=== PATIENT | female | born 1970 | race Caucasian/White ===

== ENCOUNTER → 2018-12-31 09:19 | Outpatient (CLI) | payer BC ==
--- NOTE | 2019-01-01 11:19 | ST ---
PATIENT:NESS CORONADO MEDICAL RECORD: [id number] SEX: F LOCATION:[facility] ORDER #: ADMISSION DATE: 12/31/18 AGE OF PATIENT: 48 REFERRING PHYSICIAN: INTERPRETING PHYSICIAN: NAREN DENT MD DATE OF SERVICE: 12/31/2018 PROCEDURE: Nuclear stress test. INDICATIONS: Angina, shortness of breath, hypertension, hyperlipidemia. She was exercised on standard Bobby protocol for 8 minutes 30 seconds achieving greater than 85% max target heart rate response with 31 mCi of sestamibi injected at peak stress, 11 mCi were used previously for rest images. FINDINGS: Gated SPECT reveals preserved ejection fraction at 66% with good wall motion and thickening and brightening throughout all segments. SPECT imaging Cardiolite was used as myocardial fusion agent. There is homogeneous uptake throughout all segments at rest and stress with no evidence of inducible ischemia or previous infarction. OVERALL IMPRESSION: 1. This is a normal nuclear stress test with no evidence of inducible ischemia or previous infarction. 2. Gated SPECT reveals a preserved ejection fraction at 66%. In this patient with ongoing symptomatology, the current scan does not suggest the presence of hemodynamically significant coronary artery disease. Evaluate noncardiac etiology of chest pain. TRANSINT:[id number] Voice Confirmation ID: [id number] DOCUMENT ID: [id number] NAREN DENT MD at 1119 CC: [id number] DICTATION DATE: 12/31/18 1610 ENGINE ROOM OPERATOR: 01/01/19 0124 DEP CLI 12/31/18 [facility] [address] [place] [address]
== END | disposition home or self-care (01) ==
LOC: D.HCCARDIO 09:19
DX: I20.1 Angina pectoris with documented spasm (principal)

== ENCOUNTER 2019-10-18 07:04 | Day surgery (SDC) | payer BC ==
[~2019-10-18] VITALS: Ht 154.9 cm; Wt 77.1 kg
[~2019-10-18 07:04] MED LIST: CLARITIN 10 MG10 MG PO; ESTRACE2 MG PO; EZFE 200200 MG PO; HCTZ25 MG PO; METOPROLOL TART50 MG PO; PROZAC20 MG PO; THEREMS-M1 TAB PO; ZOCOR10 MG PO
[2019-10-18 07:27] LABS: HEMATOCRIT 45.7 % (36.0-48.0); MCH 30.4 pg (26.0-34.0); MCV 86.9 fL (80.0-100.0); MEAN PLATELET VOLUME 10.4 fL (7.4-10.4); RBC 5.26 10x6/uL (4.00-5.40); RDW 13.6 % (11.5-14.5); WBC 6.8 10x3/uL (4.8-10.8)
[2019-10-18 07:34] LABS: CALC OSMOLALITY 283 mosm/kg (275-300); CALCIUM 9.1 mg/dL (8.5-10.1); CARBON DIOXIDE 33.5 mmol/L (21.0-32.0); CHLORIDE - SERUM 103 mmol/L (98-107); CREATININE - SERUM 0.8 mg/dL (0.6-1.3); GLUCOSE 109 mg/dL (74-106); POTASSIUM - SERUM 3.1 mmol/L (3.5-5.1); SODIUM 142 mmol/L (136-145); UREA NITROGEN 13 mg/dL (7-18); eGFR NON AFRICAN AMERICAN 81 mL/min (90-120)
[2019-10-18 08:41] VITALS: BP 133/88; Ht 154.9 cm; Wt 77.1 kg
[2019-10-18] MEDS ORDERED: HYDROCODON-ACE1 EAC7 PO (11:11)
[2019-10-18] MEDS ORDERED: DURICEF500 MG PO (11:12)
--- NOTE | 2019-10-18 13:50 | NUR ---
1335 ALL DC INSTRUCTIONS GIVEN. VOICES UNDERSTANDING. IV REMOVED WITH [facility]ATH[facility]ON INTACT. DRESSED AT BEDSIDE. TAKEN OUT VIA W/C AND ASSISTED TO CAR WITH FAMILY. ADVISED TO CALL OR COME BACK IF ANY PROBLEMS.
--- NOTE | 2019-10-19 07:18 | OP ---
PATIENT NAME: NESS CORONADO MEDICAL RECORD: [id number] :74 LOCATION:[facility] ADMISSION DATE: SURGEON: FISH GOODWIN DO DATE OF OPERATION: 10/18/2019 PROCEDURE PERFORMED: Left carpal tunnel injections and right endoscopic carpal tunnel release. PREOPERATIVE DIAGNOSIS: Bilateral carpal tunnel syndrome. POSTOPERATIVE DIAGNOSIS: Bilateral carpal tunnel syndrome. INDICATIONS: Ms. Coronado is a 49-year-old female who had a nerve conduction study, which showed bilateral carpal tunnel, this one on the right done first and wanted some relief with the left one. I informed her we could inject the left one when she was under to do the right one and she was okay with that. I could not promise any lasting relief with it. She was okay with that and just wants some relief. She was informed of the other risks including infection, bleeding, damage to the median nerve, need for further surgery, continued pain and continued numbness. I told her that I could hopefully get the pain to go away with release, but I could not guarantee the nerve would regenerate to get that feeling back. She was okay with that and signed a consent. SURGEON: Fish Goodwin DO DESCRIPTION OF PROCEDURE: The patient was taken to the operative suite, laid in the supine position, given a gram of Ancef and sedated an LMA was placed. Time-out was performed. Everyone was in agreeance with the correct side, site, patient and procedure. The left carpal tunnel was then injected just ulnar to the palmaris longus tendon. A 25-gauge needle was injected in the carpal tunnel and 6 mg of betamethasone and 1 mL of normal lidocaine 1% plain was injected into the left carpal tunnel, covered with a Band-Aid, prior to the injection it was cleaned with an alcohol pad. The right was then addressed. The right upper extremity was prepped and draped in sterile fashion. Timeout had been performed. The right upper extremity was exsanguinated with an Esmarch and tourniquet was inflated at 250 and it was up for 9 minutes. Incision was centered over the palmaris longus tendon. Careful dissection was then made with Ragnells, bluntly down to the carpal tunnel itself and forearm fascia was removed over the median nerve. It was then transected on top of the median nerve, visually with loupes with a scissors from distal to proximal, opening up nicely proximally. The carpal tunnel was then entered with the dilators and the sheath was entered in. Once the sheath was entered in and got a good view of the transcarpal ligament, it was probed and a rasped to ensure there was no transligamentous branch of the median nerve. The blade was then brought in and cut and the transverse carpal ligament was transected. Once it was transected, this was all removed from the wrist and under direct loupe visualization and a longer end of the Ragnell the transverse carpal ligament was inspected and ensured that it had completely been transected. There were no fibers remaining and there was good room in the carpal tunnel. The tourniquet was then let down. The site was injected with 0.25% Marcaine with epinephrine 10 mL around the site. Any bleeding was coagulated with bipolar and the site was closed with a 5-0 Monocryl in inverted interrupted fashion, dressed with Steri-Strips, Adaptic, 4 x 4's, Kerlix, and a Coban was lightly wrapped on the wrist. She was then awakened and taken to recovery in stable condition. OPERATIVE REPORT [id number] NESS CORONADO BLOOD LOSS: Minimal. COMPLICATIONS: None. TOURNIQUET TIME: 9 minutes. TRANSINT:[id number] Voice Confirmation ID: [id number] DOCUMENT ID: [id number] FISH GOODWIN DO at 0718 CC: [id number] DICTATION DATE: 10/18/19 1118 PRODUCT SAFETY TESTER: 10/18/19 1307 [facility] 10/18/19 [id number] [place] [address]
== END 2019-10-18 13:35 | disposition home or self-care (01) ==
LOC: D.OPS 07:04 → D.PAN 09:30 → D.OPS 09:30
PROVIDERS: Anesthesiology; ATTEND Orthopaedic Surgery
DX: G56.03 Carpal tunnel syndrome, bilateral upper limbs (principal)